=== PATIENT | female | born 1965 | race Caucasian/White ===

== ENCOUNTER 2016-10-19 15:27 | Emergency (ER) | payer OTHER ==
[2016-10-19 15:41] VITALS: BP 110/74; PULSE 83; TEMP 98; BMI 31.1
--- NOTE | 2016-10-19 17:53 | PDOC ---
History of Present Illness - General Chief Complaint: Rash Stated Complaint: RASH TO LT SIDE Time Seen by Provider: 10/19/16 16:53 History Source: Patient Exam Limitations: No Limitations - History of Present Illness Initial Comments: 10/19/16 17:48 RASH TO LEFT HIP AREA Timing/Duration: reports: constant Severity: Yes: mild Respiratory Risk Factors: denies: no cause identified Modifying Factors: improves with: antihistamine Past History - Past Medical History Allergies/Adverse Reactions: Allergies Allergy/AdvReac Type Severity Reaction Status Date / Time No Known Allergies Allergy Verified 10/19/16 15:37 HTN: Yes Kidney Stones: Yes Thyroid Disease: Yes (HYPO) - Psycho/Social/Smoking Cessation Hx Suicidal Ideation: No Smoking History: Never smoked Review of Systems - Review of Systems Constitutional: No: Chills, Fever, Malaise HEENTM: No: Symptoms Reported Respiratory: No: Symptoms reported, Cough Cardiac (ROS): No: Symptoms Reported ABD/GI: No: Symptoms Reported : No: Symptoms Reported Musculoskeletal: No: Symptoms Reported Integumentary: No: Symptoms Reported *Physical Exam - Vital Signs Last Vital Signs Temp Pulse Resp BP Pulse Ox 98 F 83 19 110/74 97 10/19/16 15:37 10/19/16 15:37 10/19/16 15:37 10/19/16 15:37 10/19/16 15:37 - Physical Exam General Appearance: Yes: Appropriately Dressed HEENT: positive: TMs Normal, Pharynx Normal Neck: positive: Supple. negative: Tender, Rigid, Lymphadenopathy (R), Lymphadenopathy (L) Respiratory/Chest: positive: Lungs Clear Integumentary: positive: Other (SCALING RASH ALONG SINGLE DERMATONE TO LEFT HIP , GROIN, BUTT) Medical Decision Making - Medical Decision Making 10/19/16 17:52 WILL TREAT FOR SHIGLES *DC/Admit/Observation/Transfer Diagnosis at time of Disposition: Herpes zoster Qualifiers: Herpes zoster complications: without complications Qualified Code(s): B02.9 - Zoster without complications - Discharge Dispostion Disposition: HOME Condition at time of disposition: Stable Admit: No - Patient Instructions Additional Instructions: PLEASE NOTIFIED LOCAL MD FOR MEDS AND DX
== END 2016-10-19 18:09 | disposition home or self-care (01) ==
LOC: JERFT 15:27
DX: B02.9 Zoster without complications (principal)
CPT/HCPCS: 99281-25

== ENCOUNTER 2020-12-06 17:30 | Observation (INO) | payer OTHER ==
[2020-12-06 17:53] VITALS: BMI 30.4
[2020-12-06] MEDS ORDERED: ASPIRIN 81 MG CHEWABLE TABLETS PO ONE (20:43)
[2020-12-06] MEDS ORDERED: ASPIRIN 81 MG CHEWABLE TABLETS ONE (20:45)
[2020-12-06 21:28] LABS: BASO % 0.2 % (0-2.0); EOS % 2.4 % (0-4.5); HEMATOCRIT 41.6 % (32.4-45.2); LYMPH % 38.3 % (8-40); MCH 30.1 pg (25.7-33.7); MCHC 33.6 g/dl (32.0-36.0); MEAN CELL VOLUME 89.7 fl (80-96); MEAN PLT VOLUME 10.4 fl (7.5-11.1); MONO % 8.5 % (3.8-10.2); NEUT % 50.6 % (42.8-82.8); PLATELET COUNT 185 K/MM3 (134-434); RBC 4.64 M/mm3 (3.60-5.2); RDW 14.1 % (11.6-15.6); WHITE BLOOD COUNT 6.1 K/mm3 (4.0-10.0)
[2020-12-06 21:35] LABS: INR 0.95 (0.83-1.09); PROTHROMBIN TIME (PATIENT) 11.5 SEC (9.7-13.0)
[2020-12-06 21:38] LABS: ACTIVATED PTT 28.9 SECONDS (25.2-36.5)
[2020-12-06 21:45] LABS: CHLORIDE 107 mmol/L (98-107); POTASSIUM 5.6 mmol/L (3.5-5.1); SODIUM 139 mmol/L (136-145)
[2020-12-06 21:46] LABS: BLOOD UREA NITROGEN 12.2 mg/dL (7-18); CALCIUM 9.2 mg/dL (8.5-10.1); GLUCOSE,RANDOM 90 mg/dL (74-106)
[2020-12-06 21:47] LABS: ALBUMIN 3.9 g/dl (3.4-5.0); ANION GAP 3 MMOL/L (8-16); CO2 29 mmol/L (21-32); MAGNESIUM 2.5 mg/dL (1.8-2.4)
[2020-12-06 21:50] LABS: CREATININE 0.7 mg/dL (0.55-1.3); SGOT/AST 41 U/L (15-37); SGPT/ALT 29 U/L (13-61)
[2020-12-06 21:52] LABS: BILIRUBIN,TOTAL 0.3 mg/dL (0.2-1); TOT PROT 7.8 g/dl (6.4-8.2)
[2020-12-06 21:53] LABS: ALK PHOS 114 U/L (45-117)
[2020-12-06 22:59] LABS: POTASSIUM 4.6 mmol/L (3.5-5.1)
[2020-12-06 23:01] LABS: CALCIUM 9.2 mg/dL (8.5-10.1)
[2020-12-06 23:02] LABS: BLOOD UREA NITROGEN 13.4 mg/dL (7-18)
[2020-12-06 23:05] LABS: CREATININE 0.8 mg/dL (0.55-1.3)
[2020-12-07] MEDS ORDERED: LEVOTHYROXINE NA 88 MCG TABLET (FP) PO SCH (07:00)
[2020-12-07] MEDS ORDERED: APIXABAN 2.5 MG TABLET ONE (09:03)
[2020-12-07] MEDS ORDERED: LISINOPRIL 5 MG TABLET ONE (09:03)
[2020-12-07] MEDS ORDERED: ASPIRIN 81 MG CHEWABLE TABLETS ONE (09:03)
[2020-12-07 09:59] VITALS: PULSE 74
[2020-12-07] MEDS ORDERED: ASPIRIN 81 MG CHEWABLE TABLETS PO SCH (10:00)
[2020-12-07] MEDS ORDERED: LISINOPRIL 5 MG TABLET PO SCH (10:00)
[2020-12-07] MEDS ORDERED: APIXABAN 2.5 MG TABLET PO SCH (10:00)
[2020-12-07 11:57] LABS: HEMATOCRIT 39.3 % (32.4-45.2); HEMOGLOBIN 13.3 GM/dL (10.7-15.3); MCHC 33.8 g/dl (32.0-36.0); MEAN CELL VOLUME 88.6 fl (80-96); PLATELET COUNT 179 K/MM3 (134-434); RBC 4.43 M/mm3 (3.60-5.2); RDW 13.2 % (11.6-15.6); WHITE BLOOD COUNT 4.8 K/mm3 (4.0-10.0)
[2020-12-07 12:11] LABS: POTASSIUM 4.2 mmol/L (3.5-5.1)
[2020-12-07 12:16] LABS: CALCIUM 8.8 mg/dL (8.5-10.1)
[2020-12-07 12:17] LABS: BLOOD UREA NITROGEN 11.1 mg/dL (7-18)
[2020-12-07 12:20] LABS: CREATININE 0.7 mg/dL (0.55-1.3)
[2020-12-07 14:14] VITALS: BP 134/92; TEMP 98.9
[2020-12-08] MEDS ORDERED: PANTOPRAZOLE 40 MG TABLET PO SCH (10:00)
== END 2020-12-07 14:30 | disposition home or self-care (01) ==
LOC: JER 17:30 → JERBED 21:25 → INTOOBSV 21:25 → UNDOADMOB 21:25 → JERBED 12-07 05:42
PROVIDERS: ADMIT Hospitalist; ATTEND Nurse Practitioner Family
DX: I10 Essential (primary) hypertension (principal); R07.89 Other chest pain; E03.9 Hypothyroidism, unspecified; Z86.16 Personal history of COVID-19; M54.9 Dorsalgia, unspecified; R94.31 Abnormal electrocardiogram [ECG] [EKG]; E07.89 Other specified disorders of thyroid; Z29.9 Encounter for prophylactic measures, unspecified; Z79.01 Long term (current) use of anticoagulants; R79.89 Other specified abnormal findings of blood chemistry
CPT/HCPCS: 36415; 71045-TC-FY; 71275-TC; 74174-TC; 80048; 80053; 80061; 83036; 83721; 83735; 83880; 84443; 84484; 85025; 85027; 85379; 85610; 85730; 93005; 93010; 93306-TC; 99285-25; C9803; G0378; U0003; U0005

== ENCOUNTER 2021-07-29 08:38 | Emergency (ER) | payer OTHER ==
[2021-07-29 08:48] VITALS: TEMP 97.8; BMI 34.0
[2021-07-29] MEDS ORDERED: SODIUM CHLORIDE 0.9% 500 ML INFUS.BAG IV ONE (09:46)
[2021-07-29] MEDS ORDERED: METOCLOPRAMIDE HCL INJECTION 10 MG/2 ML VIAL IVPUSH ONE (09:46)
[2021-07-29] MEDS ORDERED: ACETAMINOPHEN 1000 MG/100 ML VIAL IVPB ONE (09:46)
[2021-07-29] MEDS ORDERED: METOCLOPRAMIDE HCL INJECTION 10 MG/2 ML VIAL ONE (09:49)
[2021-07-29] MEDS ORDERED: ACETAMINOPHEN INJECTION 100 ML IVPB ONE (09:50)
[2021-07-29] MEDS ORDERED: MAGNESIUM SULF 50% (8.12 MEQ/2 ML-1 GM VIAL) IVPB ONE (13:03)
[2021-07-29] MEDS ORDERED: DEXAMETHASONE SOD PHOSPHATE 10 MG/1 ML VIAL IVPUSH ONE (13:04)
[2021-07-29] MEDS ORDERED: MAGNESIUM 1GM/D5W - 1 GM/100 ML IVPB IVPB ONE (13:15)
[2021-07-29] MEDS ORDERED: DEXAMETHASONE SOD PHOSPHATE 10 MG/1 ML VIAL ONE (13:15)
[2021-07-29 17:01] VITALS: BP 141/76; PULSE 83
== END 2021-07-29 17:01 | disposition home or self-care (01) ==
LOC: JER 08:38
PROC: 3E0333Z Introduction of Anti-inflammatory into Peripheral Vein, Percutaneous Approach (ICD-10-PCS; principal; 2021-07-29)
PROC: 3E033GC Introduction of Other Therapeutic Substance into Peripheral Vein, Percutaneous Approach (ICD-10-PCS; 2021-07-29)
PROC: 3E033GC Introduction of Other Therapeutic Substance into Peripheral Vein, Percutaneous Approach (ICD-10-PCS; 2021-07-29)
PROC: 3E033GC Introduction of Other Therapeutic Substance into Peripheral Vein, Percutaneous Approach (ICD-10-PCS; 2021-07-29)
PROC: 3E033GC Introduction of Other Therapeutic Substance into Peripheral Vein, Percutaneous Approach (ICD-10-PCS; 2021-07-29)
DX: R51.9 Headache, unspecified (principal)
CPT/HCPCS: 70450-TC; 93005; 93010; 96374; 96375; 99285-25; J0131; J1100